=== PATIENT | female | born 1980 | race Caucasian/White ===

== ENCOUNTER 2017-10-14 14:49 | Emergency (ER) | payer OTHER, SELFPAY ==
[2017-10-14 14:50] VITALS: BP 163/99; PULSE 74; RESP 18; TEMP 36.8; O2SAT 99; BMI 52.9
--- NOTE | 2017-10-14 15:10 | RAD_ITS ---
STUDY: X-RAY - RIGHT KNEE REASON FOR EXAM: Female, 37 years old. Injury bowling. Pain. TECHNIQUE: 4 view(s) of the knee. COMPARISON: February 15, 2013 FINDINGS: Normal visualized distal femur. Normal visualized proximal tibia and fibula. Normal proximal tibiofibular articulation. There is moderate arthrosis of the medial and lateral femorotibial compartments. There is mild arthrosis of the patellofemoral compartment. There is a joint effusion with an intra-articular osteochondral body measuring approximately 11 mm in widest diameter projected posteriorly on the lateral view. RAD/Knee 4 or More Views IMPRESSION: Tricompartmental arthrosis. Small joint effusion with 11 mm in diameter intra-articular osteochondral body. Electronically Signed: Omid Vargas MD at 15:44 EST , Service support ,
--- NOTE | 2017-10-14 15:43 | ED.VISSUMM ---
- ER Visit Summary Date of Service: 10/14/17 Chief Complaint: Right knee pain History of Present Illness: The patient is a 37 F presenting with right knee pain. She states she was bowling yesterday and felt a pop in her right knee. She has had pain with ambulation since. She is taking ibuprofen and has iced her knee at home. She denies other complaints. Physical Examination: Vitals are stable. Patient is afebrile. Alert no acute distress. HEENT exam is unremarkable. Lungs are clear and equal bilaterally. Heart is regular rate and rhythm. Extremities right knee medial tenderness, painful active full range of motion, NVID. No erythema or warmth. No ankle tenderness Skin is warm and dry. Remainder of exam is unremarkable. Emergency Department Course and Treatment: X-ray of the right knee was obtained and shows tricompartmental arthrosis. Small joint effusion with 11 mm in diameter intra-articular osteochondral body. She was given an Tla wrap, crutches. She is advised to ice and elevate. She is given a prescription for Naprosyn. She is advised to follow-up with orthopedics as needed. Advised return ED if worsening complaints. Disposition: Discharge home Impression: Right knee sprain This note was generated with [employer] dictation software. It may contain incorrect words, spelling, and punctuation that were not noted in review of the chart prior to signing ED Disposition - Plan for ED Patient: Chief Complaint: Lower Extremity Injury Referrals: Herbert Menendez MD [Primary Care Provider] -
--- NOTE | 2017-10-14 15:59 | ED.DEP ---
ED Disposition - Plan for ED Patient: Chief Complaint: Lower Extremity Injury Instructions: ED Sprain Knee Prescriptions: Naproxen [Naprosyn] 500 mg PO BID PRN #20 tab Referrals: Herbert Menendez MD [Primary Care Provider] - Yogi Matthews MD [STAFF PHYSICIAN] -
[2017-10-14 16:33] VITALS: PULSE 80; RESP 16; O2SAT 99
== END 2017-10-14 16:34 | disposition home or self-care (01) ==
PROVIDERS: Emergency Provider Emergency Medicine; Family Provider Family Medicine; PCP Family Medicine
DX: S83.91XA Sprain of unspecified site of right knee, initial encounter (principal); M17.11 Unilateral primary osteoarthritis, right knee; X58.XXXA Exposure to other specified factors, initial encounter; Y93.54 Activity, bowling; Y92.9 Unspecified place or not applicable; Y99.9 Unspecified external cause status; Z72.0 Tobacco use; Z79.899 Other long term (current) drug therapy
CPT/HCPCS: 73564; 99283

== ENCOUNTER 2019-03-03 13:31 | Emergency (ER) | payer BC, SELFPAY ==
[2019-03-03 13:31] VITALS: BP 160/93; PULSE 98; RESP 16; TEMP 36.8; O2SAT 99; BMI 46.5
--- NOTE | 2019-03-03 13:41 | RAD_ITS ---
STUDY: X-RAY - LEFT FOOT CLINICAL: Female, 38 years old. Lateral foot pain following injury. TECHNIQUE: 3 view(s) of the foot. COMPARISON: Comparison is made with prior study dated February 11, 2010. FINDINGS: Normal talus, calcaneus, and tarsal bones. Normal visualized subtalar, talonavicular, calcaneocuboid, tarsal and tarsometatarsal articulations. Screw fixation of an old fracture at the base of the fifth metatarsal. No acute fractures seen. Normal metatarsophalangeal joint of the great toe. Normal tibial and fibular sesamoid bones. Normal interphalangeal joint of the great toe. Normal phalanges of the great toe. Normal second through fifth metatarsophalangeal joints. Normal interphalangeal joints and phalanges of the lesser toes. Soft tissue swelling. RAD/Foot min 3 Views IMPRESSION: Soft tissue swelling. Healed transverse fracture at the base of the fifth metatarsal a single screw. Electronically Signed: Nick Sherwood, at 14:19 EDT , Service support ,
--- NOTE | 2019-03-03 13:45 | ED.DCSUM_ITS ---
- ER Visit Summary Date of Service: 03/03/19 Chief Complaint: Left foot pain History of Present Illness: The patient is a 38 F with left foot pain since Sunday, 2 days ago. The pain started when she was getting into a car. She has pain to her lateral left foot. Worse with weightbearing, touch. History of a pin in the left foot. Physical Examination: Patient has tenderness to palpation over her left lateral foot over the metatarsal, midshaft. There is underlying induration. Neurovascular intact distally. Skin intact. Test Results: X-rays pending. Emergency Department Course and Treatment: Patient declined pain medicine while awaiting results. X-ray showed her old fracture and hardware. No acute process. Patient was given crutches. Rest, ice, elevate. She declined pain medicine. She will use [id number] medicines. 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 Treatment Plan: As above Disposition: Discharge Impression: 1. Left foot pain This note was generated with [employer] dictation software. It may contain incorrect words, spelling, and punctuation that were not noted in review of the chart prior to signing ED Disposition - Plan for ED Patient: Referrals: Herbert Menendez MD [Primary Care Provider] -
--- NOTE | 2019-03-03 14:41 | ED.DEP ---
ED Disposition - Plan for ED Patient: Instructions: ED Contusion Foot Additional Instructions: follow up with your doctor
[2019-03-03 15:03] VITALS: BP 124/77; PULSE 61; RESP 15; O2SAT 98
== END 2019-03-03 15:06 | disposition home or self-care (01) ==
LOC: ED 14:20
PROVIDERS: Emergency Provider Emergency Medicine; Family Provider Family Medicine; PCP Family Medicine
DX: M79.672 Pain in left foot (principal); F32.9 Major depressive disorder, single episode, unspecified
CPT/HCPCS: 73630; 99283